=== PATIENT | female | born 1960 | race Caucasian/White ===

== ENCOUNTER → 2017-04-19 | Outpatient (CLI) | payer SELFPAY ==
[~2017-04-19] MED LIST: CARDIZEM120 MG PO; CLEOCIN HCL300 MG PO; CYMBALTA20 M1 PO; DOXEPIN HCL100 MG PO
== END | disposition home or self-care (01) ==
LOC: ORTHO 11:20
DX: M17.11 Unilateral primary osteoarthritis, right knee (principal)